=== PATIENT | female | born 1995 | race Two or more races ===

== ENCOUNTER 2022-09-17 21:50 | Emergency (ER) | payer MEDICAID, OTHER ==
[~2022-09-17] VITALS: Ht 162.6 cm; Wt 84.0 kg
[2022-09-17 23:52] LABS: Basophils # (auto) 0 10 ^3/uL (0-0.2); Basophils % (auto) 0.2 % (0.0-2.0); Eosinophils # (auto) 0 10 ^3/uL (0-0.8); Hematocrit 44.6 % (36.0-46.0); Hemoglobin 15.4 g/dL (12.2-16.2); Lymphocytes # (auto) 2.3 10 ^3/uL (0.4-5.4); Mean Corpuscular Hgb Conc. 34.7 g/dL (32.0-36.0); Mean Corpuscular Volume 89.4 fL (80.0-100.0); Monocytes # (auto) 1.3 10 ^3/uL (0-1.3); Monocytes % (auto) 5.3 % (0.0-12.0); Neutrophils # (auto) 21.4 10 ^3/uL (1.6-8.6); Neutrophils % (auto) 85.5 % (37.0-80.0); Nucleated Red Blood Cells % 0.1 %; Red Blood Cells 4.98 10^6/uL (4.0-5.20)
[2022-09-18 00:08] LABS: Albumin 4.1 g/dL (3.4-5.0); Calcium 9.2 mg/dL (8.5-10.1); Potassium 3.9 mmol/L (3.5-5.1)
[2022-09-18 00:11] LABS: BUN/Creatinine Ratio 14.9 (10.0-20.0); Bilirubin, Total 0.5 mg/dL (0.2-1.0); Total Protein 7.9 g/dL (6.4-8.2)
[2022-09-18] MEDS ORDERED: ONDANSETRON ODT 4 MG TAB PO ONE (03:15)
[2022-09-18] MEDS ORDERED: HYDROcodone-ACET 5/325MG TAB PO ONE (03:15)
[2022-09-18] MEDS ORDERED: IBUP-1456 PO (03:18)
[2022-09-18] MEDS ORDERED: CYCL-837 PO (03:18)
[2022-09-18 03:23] VITALS: BP 122/69; RESP 18; TEMP 98.3; O2SAT 97
[2022-09-18 03:38] VITALS: PULSE 83
== END 2022-09-18 06:11 | disposition home or self-care (01) ==
LOC: ER 21:50 → EDBD 21:50 → ER 09-18 03:57
DX: S20.219A Contusion of unspecified front wall of thorax, initial encounter (principal); S30.1XXA Contusion of abdominal wall, initial encounter; R10.2 Pelvic and perineal pain; V43.62XA Car passenger injured in collision with other type car in traffic accident, initial encounter; Y93.89 Activity, other specified; Y92.89 Other specified places as the place of occurrence of the external cause; Y99.8 Other external cause status
CPT/HCPCS: 36415; 71250; 74176; 80053; 83690; 84484; 84702; 85025; 93005; 99284; Q0162